=== PATIENT | male | born 1980 | race Caucasian/White ===

== ENCOUNTER 2018-11-14 20:55 | Emergency (ER) | payer BC ==
[2018-11-14] MEDS ORDERED: Piperacillin/Tazobac ADVAN(*) 3.375 GM in NS 0.9% 100 ML* 100 ML IVPB ONE (21:37)
--- NOTE | 2018-11-14 21:40 | ED ---
Bite Injury/Animal - HPI Summary HPI Summary: The patient is a 38 y/o M presenting to [facility] accompanied by with a chief complaint of sudden onset bite and scratches on the upper extremities from his own cat at 0800 this morning. He reports that his indoor cat got out of the house this morning, and when he tried to stop the cat from fighting with a nearby dog outside, the cat bit his right hand and scratched the left and right forearms, leaving puncture jacobs on the hand and left arm and superficial lacerations on the right dorsal arm. He additionally c/o numbness in the fingers and pain in the elbow of the right arm that have resolved, and also currently there is swelling and erythema surrounding the sites. He denies fever and SOB. The pain is currently rated 6/10 in severity. The cat is available for observation, but it is not UTD on rabies vaccines. 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 Negative: Fever Animal Available for Observation: Yes - Allergies/Home Medications Allergies/Adverse Reactions: Allergies Allergy/AdvReac Type Severity Reaction Status Date / Time No Known Allergies Allergy Verified 11/14/18 21:12 Home Medications: Home Medications NK [No Home Medications Reported] 11/14/18 [History Confirmed 11/14/18] PMH/Surg Hx/FS Hx/Imm Hx Endocrine/Hematology History: Denies: Hx Diabetes Cardiovascular History: Denies: Hx Hypertension - Surgical History Surgery Procedure, Year, and Place: none Infectious Disease History: No Infectious Disease History: Denies: Traveled Outside the [place] in Last 30 Days - Family History Known Family History: Negative: Diabetes - Social History Occupation: Employed Full-time Lives: With Family Hx Substance Use: No Substance Use Type: Reports: None Hx Tobacco Use: No Smoking Status (MU): Never Smoked Tobacco Do You Chew or Dip Tobacco: No Have You Chewed or Dipped Tobacco in the LAST YEAR: No Have You Smoked in the Last Year: No Review of Systems Negative: Fever Negative: Shortness Of Breath Positive: Other - pain in right elbow (resolved) Positive: Other - scratches on right forearm, puncture wounds in right hand and one in left forearm, swelling and erythema surround wounds Positive: Numbness - mild (resolved) All Other Systems Reviewed And Are Negative: Yes Physical Exam - Summary Physical Exam Summary: Appearance: well appearing, no pain distress Skin: warm, dry, reflects adequate perfusion, puncture would at base of right dorsal thumb, number of horizontal scratches and punctures wounds on right dorsal forearm, single puncture on ulnar mid-forearm on the left side with surrounding erythema, no adenopathy Head/face: normal Eyes: EOMI, YESSICA ENT: mucous membranes moist Neck: supple, non-tender Respiratory: CTA, breath sounds present Cardiovascular: RRR, pulses symmetrical Abdomen: non-tender, soft Bowel Sounds: present Musculoskeletal: normal, strength/ROM intact Neuro: normal, sensory motor intact, A&Ox3 Triage Information Reviewed: Yes Vital Signs On Initial Exam: Initial Vitals Temp Pulse Resp BP Pulse Ox 99.0 F 90 16 134/89 98 11/14/18 21:10 11/14/18 21:10 11/14/18 21:10 11/14/18 21:10 11/14/18 21:10 Vital Signs Reviewed: Yes Diagnostics - Vital Signs Vital Signs Temp Pulse Resp BP Pulse Ox 11/14/18 21:10 99.0 F 90 16 134/89 98 - Laboratory Lab Statement: Any lab studies that have been ordered have been reviewed, and results considered in the medical decision making process. - Radiology L Forearm XR Radiology Interpretation Completed By: Radiologist Summary of Radiographic Findings: No foreign body. ED physician has reviewed this report. R Forearm XR Radiology Interpretation Completed By: Radiologist Summary of Radiographic Findings: No foreign body or soft tissue gas present. ED physician has reviewed this report. R Wrist XR Radiology Interpretation Completed By: Radiologist Summary of Radiographic Findings: No foreign body or soft tissue gas present. ED physician has reviewed this report. Re-Evaluation - Re-Evaluation First Eval Re-Evaluation Time: 22:15 Change: Unchanged Comment: I spoke with the patient concerning imaging results and discharge home. Bite Injury Course/Dx - Course Course Of Treatment: Nurses notes reviewed. X-rays of the affected areas are negative for gas or foreign body. Patient received a dose of IV Zosyn and his first oral dose of Augmentin to go home with. He will take this in the rn hospital hours. He'll then continue on Augmentin and bacitracin ointment to the wounds. The cat will be observed in their home for signs of illness. No rabies prophylaxis was given. Tetanus is up-to-date. - Diagnoses Differential Diagnosis/HQI/PQRI: Positive: Cellulitis, Superficial Infection, Deep Space Infection, Tenosynovitis Provider Diagnosis: Cat scratch, Cellulitis Discharge - Sign-Out/Discharge Documenting (check all that apply): Patient Departure - Patient will be discharged home. Patient Received Moderate/Deep Sedation with Procedure: No - Discharge Plan Condition: Improved Disposition: HOME Patient Education Materials: Animal Bite (ED) Referrals: No Primary Care Phys,NOPCP [Primary Care Provider] - Additional Instructions: CAT will have to be monitored for signs of illness in the house. Dress wounds with bacitracin ointment and Band-Aids. Return with fevers, redness, tender lymph nodes in the underarms, worse or other concerns. Follow-up with your primary care physician in the next 2 days for wound rechecks. - Billing Disposition and Condition Condition: IMPROVED Disposition: Home - Attestation Statements Document Initiated by Laurence: Yes Documenting Scribe: Coty Bowman Provider For Whom Laurence is Documenting (Include Credential): Dr. Vivek Carl MD Scribe Attestation: Coty Robertson, scribed for Dr. Vivek Carl MD on 11/15/18 at 0354. Scribe Documentation Reviewed: Yes Provider Attestation: The documentation as recorded by the Coty cabezas accurately reflects the service I personally performed and the decisions made by me, Dr. Vivek Carl MD Status of Scribe Document: Viewed
[2018-11-14] MEDS ORDERED: Ibuprofen TAB* 600 MG PO ONE (22:09)
[2018-11-14] MEDS ORDERED: Amoxicillin/Clavulanate TAB* 875 MG PO ONE (22:14)
[2018-11-14] MEDS ORDERED: Bacitracin OINTMENT* 0.5% 0.5 oz TUBE TOPICAL ONE (22:55)
[2018-11-14 23:09] VITALS: BP 135/87
== END 2018-11-14 23:09 | disposition home or self-care (01) ==
LOC: ED 20:55
DX: S40.812A Abrasion of left upper arm, initial encounter (principal); S40.811A Abrasion of right upper arm, initial encounter; L03.114 Cellulitis of left upper limb; L03.113 Cellulitis of right upper limb; W55.03XA Scratched by cat, initial encounter
CPT/HCPCS: 96360; 99283; A9270-GY; J2543